=== PATIENT | male | born 1995 | race African-American/Black ===

== ENCOUNTER 2018-05-21 18:50 | Emergency (ER) | payer SELFPAY ==
[~2018-05-21] VITALS: Ht 188 cm; Wt 72.7 kg
[2018-05-21 20:08] LABS: BASO % 0.3 % (0.0-2.0); EOS # 0.1 (0.0-0.7); EOS % 0.5 % (0-4.0); GRAN % 63.9 % (42.2-75.2); HEMATOCRIT 46.9 % (42.0-52.0); HEMOGLOBIN 15.7 g/dl (13.5-18.0); LYMPH # 2.8 (1.2-3.4); LYMPH % 25.2 % (20.0-51.0); MEAN CELL VOLUME 89 fl (80.0-100.0); MEAN CORPUSCULAR HEMOGLOBIN 30 pg (27.0-31.0); MEAN CORPUSCULAR HGB CONC 34 g/dl (33.0-37.0); MONO # 1.1 (0.1-0.6); MONO % 9.8 % (1.7-9.3); PLATELET COUNT 178 K/mm3 (130-400); RED BLOOD COUNT 5.28 M/mm3 (4.20-5.60)
[2018-05-21 20:23] LABS: BILIRUBIN,TOTAL 0.4 mg/dL (0.0-1.0); C-REACTIVE PROTEIN 1.4 mg/dL (0.0-0.9); CALCIUM 9.5 mg/dL (8.4-10.2); CREATININE, serum 1.01 mg/dL (0.66-1.25); POTASSIUM 4.5 mmol/L (3.4-5.0); TOTAL PROTEIN 9.3 gm/dL (6.4-8.2)
[2018-05-21] MEDS ORDERED: NORCO 325 MG-51 TAB PO (20:36)
[2018-05-21] MEDS ORDERED: DOXYCYCLINE HY100 MG PO (20:36)
[2018-05-21] MEDS ORDERED: CEPHALEXIN500 M1 PO (20:36)
[2018-05-21 20:50] VITALS: BP 137/85; PULSE 56; TEMP 98.7
== END 2018-05-21 20:50 | disposition home or self-care (01) ==
LOC: COL.ER 18:50
PROVIDERS: Physician Assistant
DX: L02.212 Cutaneous abscess of back [any part, except buttock and flank] (principal)

== ENCOUNTER 2019-04-02 22:06 | Emergency (ER) | payer SELFPAY ==
[~2019-04-02] VITALS: Ht 188 cm; Wt 79.5 kg
[~2019-04-02 22:06] MED LIST: CEPHALEXIN500 M1 PO; DOXYCYCLINE HY100 MG PO; NORCO 325 MG-51 TAB PO
[2019-04-02 22:20] VITALS: BP 127/62; TEMP 98.2
[2019-04-03 00:52] VITALS: PULSE 86
== END 2019-04-03 00:52 | disposition home or self-care (01) ==
LOC: COL.ER 22:06
DX: S61.411A Laceration without foreign body of right hand, initial encounter (principal); W10.9XXA Fall (on) (from) unspecified stairs and steps, initial encounter; W25.XXXA Contact with sharp glass, initial encounter; Z23 Encounter for immunization

== ENCOUNTER 2019-04-16 20:24 | Emergency (ER) | payer SELFPAY ==
[2019-04-16 20:29] VITALS: BP 136/72; PULSE 61; TEMP 97
== END 2019-04-16 20:34 | disposition home or self-care (01) ==
LOC: COL.ER 20:24
DX: S61.411D Laceration without foreign body of right hand, subsequent encounter (principal); X58.XXXD Exposure to other specified factors, subsequent encounter

== ENCOUNTER 2022-12-05 22:44 | Emergency (ER) | payer SELFPAY ==
[~2022-12-05] VITALS: Ht 188 cm; Wt 79.5 kg
[2022-12-05] MEDS ORDERED: IBU800 M1 PO (23:34)
[2022-12-06] VITALS: BP 143/77; PULSE 72; TEMP 98.2
== END 2022-12-06 | disposition home or self-care (01) ==
LOC: COL.ER 22:44
DX: S69.92XA Unspecified injury of left wrist, hand and finger(s), initial encounter (principal); S59.912A Unspecified injury of left forearm, initial encounter; F17.210 Nicotine dependence, cigarettes, uncomplicated; Z28.310 Unvaccinated for COVID-19; X50.1XXA Overexertion from prolonged static or awkward postures, initial encounter